=== PATIENT | female | born 1955 | race Caucasian/White ===

== ENCOUNTER → 2018-01-07 | Outpatient (CLI) | payer BC ==
--- NOTE | 2018-01-07 09:54 | RAD ---
EXAM DESCRIPTION: Shoulder,Left 2 or More Views CLINICAL HISTORY: 62 years Female, PAIN IN LT SHOULDER COMPARISON: None available. FINDINGS: The visualized bones are well-mineralized.No acute fracture or dislocation. The soft tissues appear grossly unremarkable. Moderate acromio-clavicular joint osteoarthritis. IMPRESSION: Moderate acromio-clavicular joint osteoarthritis. Electronically signed by: Tonio Persaud MD 01/07/2018 9:52 AM CDT
== END ==
LOC: RAD 08:29
PROVIDERS: ATTEND Orthopaedic Surgery
DX: M25.512 Pain in left shoulder (principal); M19.012 Primary osteoarthritis, left shoulder